=== PATIENT | female | born 1985 | race Caucasian/White ===

== ENCOUNTER 2022-12-15 12:47 | Inpatient (IN) | payer BC ==
[2022-12-15] MEDS ORDERED: Terbutaline 1 MG/ML SDV SUBCUT PRN (13:15)
[2022-12-15] MEDS ORDERED: Sodium Chloride 0.9% 2.5 ML Syringe FLUSH PRN (13:15)
[2022-12-15] MEDS ORDERED: Sodium Chloride 0.9% 20 ML SDV IV PRN (13:15)
[2022-12-15] MEDS ORDERED: Lidocaine 1% 50 ML MDV INJECT PRN (13:15)
[2022-12-15] MEDS ORDERED: Butorphanol 1 MG/ML SDV IVPUSH PRN (13:15)
[2022-12-15] MEDS ORDERED: Misoprostol 200 MCG Tab PO PRN ×2 (13:15→20:23)
[2022-12-15] MEDS ORDERED: Ampicillin 2 GM in Sodium Chloride 0.9% 100 ML IV ONE (13:15)
[2022-12-15] MEDS ORDERED: Sodium Chloride 0.9% 10 ML Syringe FLUSH PRN (13:15)
[2022-12-15] MEDS ORDERED: Carboprost Tromethamine 250 MCG/1 mL Vial IM PRN (13:15)
[2022-12-15] MEDS ORDERED: Methylergonovine 0.2 MG/1 ML Amp IM PRN ×2 (13:15→20:23)
[2022-12-15] MEDS ORDERED: Water For Irrigation,Sterile 1,000 ML Container IRR PRN (13:15)
[2022-12-15] MEDS ORDERED: Oxytocin/0.9 % Sodium Chloride 30 UNIT/500 ML BAG IV SCH ×2 (13:15)
[2022-12-15] MEDS: Lactated Ringers 1,000 ML IV SCH ×2 (13:15→19:25)
[2022-12-15] MEDS ORDERED: Tranexamic Acid IN NACL,ISO-OS 1,000 MG in Premix Bag 1 BAG IV PRN ×4 (13:15→20:23)
[2022-12-15 13:50] LABS: HEMATOCRIT 39.8 % (36.0-46.0); HEMOGLOBIN 13.2 g/dL (12.0-16.0); MEAN CORPUSCULAR HEMOGLOBIN 29.2 pg (27.0-32.0); MEAN CORPUSCULAR HGB CONC 33.2 g/dL (31.0-37.0); MEAN CORPUSCULAR VOLUME 88.1 fL (80.0-98.0); MEAN PLATELET VOLUME 11.2 fL (7.40-12.00); RED BLOOD CELL COUNT 4.52 M/uL (4.30-5.90); WHITE BLOOD CELL COUNT,WBC 10.15 K/uL (4.0-11.0)
[2022-12-15] MEDS: Ampicillin 1 GM in Sodium Chloride 0.9% 50 ML IV SCH ×2 (14:57→16:59)
[2022-12-15] MEDS ORDERED: Ibuprofen 400 MG Tab PO PRN (20:23)
[2022-12-15] MEDS ORDERED: Docusate Sodium 100 MG Cap PO PRN (20:23)
[2022-12-15] MEDS ORDERED: Bisacodyl 10 MG Supp RECTAL PRN (20:23)
[2022-12-15] MEDS ORDERED: Lanolin 100% Cream 7 GM Tube TOP PRN (20:23)
[2022-12-15] MEDS ORDERED: Benzocaine/Menthol 20%-0.5% Spray 78 GM Cannister TOP PRN (20:23)
[2022-12-15] MEDS ORDERED: Acetaminophen 500 MG Tab PO PRN ×2 (20:23)
[2022-12-15] MEDS ORDERED: Ibuprofen 800 MG Tab PO PRN (20:23)
[2022-12-15] MEDS ORDERED: Witch Hazel Medicated Pads 40/Jar TOP PRN (20:23)
[2022-12-15 20:44] LABS: PH,UMBILICAL ARTERIAL 7.358 (7.18-7.38); PH,UMBILICAL VENOUS 7.352 (7.25-7.45)
[2022-12-16 06:04] LABS: HEMATOCRIT 35.2 % (36.0-46.0); HEMOGLOBIN 11.7 g/dL (12.0-16.0)
== END 2022-12-17 11:28 | disposition home or self-care (01) | DRG 560 ==
LOC: MW.OB 12:47 → OBSVTOIN 19:39 → MW.OB 19:39
PROVIDERS: ADMIT Obstetrics & Gynecology; ATTEND Obstetrics & Gynecology
PROC: 10E0XZZ Delivery of Products of Conception, External Approach (ICD-10-PCS; principal; 2022-12-15)
PROC: 0KQM0ZZ Repair Perineum Muscle, Open Approach (ICD-10-PCS; 2022-12-15)
PROC: 10907ZC Drainage of Amniotic Fluid, Therapeutic from Products of Conception, Via Natural or Artificial Opening (ICD-10-PCS; 2022-12-15)
PROC: 3E033VJ Introduction of Other Hormone into Peripheral Vein, Percutaneous Approach (ICD-10-PCS; 2022-12-15)
PROC: 3E0334Z Introduction of Serum, Toxoid and Vaccine into Peripheral Vein, Percutaneous Approach (ICD-10-PCS; 2022-12-15)
DX: O99.824 Streptococcus B carrier state complicating childbirth (principal); Z37.0 Single live birth; O70.1 Second degree perineal laceration during delivery; Z3A.39 39 weeks gestation of pregnancy; Z98.84 Bariatric surgery status; Z98.890 Other specified postprocedural states; O26.893 Other specified pregnancy related conditions, third trimester; Z67.11 Type A blood, Rh negative; O99.214 Obesity complicating childbirth
CPT/HCPCS: 36415; 59025; 59409; 82803; 85014; 85018; 85027; 85460; 86592; 86850; 86900; 86901; A9270-GY; J0290; J2001; J2590; J2790; J3490; J7120